=== PATIENT | female | born 1980 | race Caucasian/White ===

== ENCOUNTER 2023-01-21 13:47 | Emergency (ER) | payer OTHER ==
[2023-01-21 14:05] VITALS: BP 117/73; PULSE 68; RESP 18; TEMP 97.4; BMI 25.7
[2023-01-21] MEDS ORDERED: IBUPROFEN 600 MG TABLET (FP) PO ONE ×2 (15:20→15:21)
[2023-01-21] MEDS ORDERED: ACETAMINOPHEN 500 MG TABLET (FP) PO ONE (15:20)
[2023-01-21] MEDS ORDERED: ACETAMINOPHEN 500 MG TABLET (FP) ONE (15:21)
== END 2023-01-21 16:15 | disposition home or self-care (01) ==
LOC: JERFT 13:47
DX: M25.571 Pain in right ankle and joints of right foot (principal); R22.41 Localized swelling, mass and lump, right lower limb; W01.0XXA Fall on same level from slipping, tripping and stumbling without subsequent striking against object, initial encounter
CPT/HCPCS: 73610-TC-RT-FY; 73630-TC-RT-FY; 99283-25